=== PATIENT | male | born 1955 | race Caucasian/White ===

== ENCOUNTER → 2023-02-18 | Outpatient (CLI) | payer MEDICARE, OTHER, SELFPAY ==
--- NOTE | 2023-02-18 15:09 | NEURO ---
NCS and/or EMG Patient Report Ordering Doctor: Mitul Streeter DATE OF SERVICE: 02/18/23 Raymundo presents for electrodiagnostic testing of the right upper limb. He reports numbness and tingling in the right hand. Electrodiagnostic findings: Right median motor response, including F-wave, was not obtainable. Right ulnar motor response demonstrates normal distal latency, amplitude and conduction velocity. Normal right ulnar F?wave. Prolonged right median sensory latency at the wrist. Normal right ulnar and radial sensory responses. Needle EMG testing was performed the right upper limb. All muscles tested showed no evidence of denervation with normal motor unit action potentials. Electrodiagnostic impression: This is an abnormal study in the right upper limb 1. Electrodiagnostic findings suggestive of right-sided median mononeuropathy. This is consistent with a severe right carpal tunnel syndrome. Multi Select Codes Neurology Neurology Interp Codes: 65335-47 Musc test done w/n test comp (interp) and 44664-35 Nrv cndj tst 5-6 studies (interp)
== END | disposition home or self-care (01) ==
LOC: PSN 09:50
PROVIDERS: Referring Provider Orthopaedic Surgery; Visit Provider Orthopaedic Surgery
DX: G56.01 Carpal tunnel syndrome, right upper limb (principal); M18.11 Unilateral primary osteoarthritis of first carpometacarpal joint, right hand
CPT/HCPCS: 95886; 95909